=== PATIENT | male | born 1955 | race Two or more races ===

== ENCOUNTER 2018-09-02 14:45 | Emergency (ER) | payer MEDICAID ==
[~2018-09-02] VITALS: Ht 167.6 cm; Wt 72.6 kg
[2018-09-02] MEDS ORDERED: METFORMIN HCL500 M1 ORAL (14:57)
[2018-09-02] MEDS ORDERED: GABAPENTIN100 MG ORAL (14:57)
[2018-09-02] MEDS ORDERED: AMLODIPINE BESY10 MG ORAL (14:57)
[2018-09-02] MEDS ORDERED: LISINOPRIL5 MG ORAL (14:57)
[2018-09-02] MEDS ORDERED: ASPIR 8181 MG ORAL (14:57)
[2018-09-02] MEDS ORDERED: ATORVASTATIN CA20 MG ORAL (14:57)
[2018-09-02] MEDS ORDERED: Morphine Sulfate 4mg/ml Inj (IV USE ONLY) IVP ONE (15:00)
[2018-09-02] MEDS ORDERED: Isovue-300 100ml vial INJ PRN (15:00)
[2018-09-02 15:19] LABS: EOSINOPHILS % (AUTO) 1.3 % (0.0-3.0); HEMOGLOBIN 12.8 G/DL (14.2-18.0); MEAN CORPUSCULAR VOLUME 92 FL (80-99); MONOCYTES % (AUTO) 8.9 % (1.0-10.0); NEUTROPHILS % (AUTO) 70.7 % (45.0-75.0); PLATELET COUNT 270 K/UL (150-450); RED BLOOD COUNT 3.81 M/UL (4.70-6.10); RED CELL DISTRIBUTION WIDTH 10.5 % (11.6-14.8); WHITE BLOOD COUNT 9.3 K/UL (4.8-10.8)
--- NOTE | 2018-09-02 15:26 | Emergency Room Report ---
History of Present Illness General Chief Complaint: Abdominal Pain Source: Patient, EMS Present Illness HPI Patient presents with left hernia pain. Started yesterday. He has had a chronic hernia and has been evaluated at [facility]. There is scheduling a colonoscopy as opposed to scheduling surgery. He does not recall doing anything to cause the hernia to pop about this time. He denies vomiting or change in his bowel habits. The pain is 9 or 10/10 and constant but worse when he stands up. It improves when he lays down. There is some radiation into his abdomen. He denies dysuria. Occasionally he can reduce the hernia himself. He was unable to do so this time. No medications were taken. No fevers, chills, chest pain, palpitations, nausea, shortness of breath, depression, visual changes, headache. Allergies: Coded Allergies: No Known Allergies (Unverified , 09/02/18) Patient History Past Medical History: see triage record Social History Narrative From home Reviewed Nursing Documentation: PMH: Agreed; PSxH: Agreed Nursing Documentation-PMH Past Medical History: No History, Except For Hx Hypertension: Yes Hx Diabetes: Yes Hx Cancer: Yes - colon Review of Systems All Other Systems: negative except mentioned in HPI Physical Exam Vital Signs Date Time Temp Pulse Resp B/P (MAP) Pulse Ox O2 Delivery O2 Flow Rate FiO2 09/02/18 14:42 98.1 90 18 156/88 (110) 99 Room Air Sp02 EP Interpretation: reviewed, normal General Appearance: well appearing, no apparent distress, GCS 15 Head: normocephalic Eyes: bilateral eye normal inspection, bilateral eye PERRL ENT: moist mucus membranes Neck: supple Respiratory: lungs clear, normal breath sounds Cardiovascular #1: regular rate, rhythm Cardiovascular #2: 2+ radial (R) Gastrointestinal: normal inspection, normal bowel sounds, non tender, non- distended, tenderness - Scrotum, hernia - Left inguinal extending into scrotum Genitourinary: other - Hernia in left scrotum Musculoskeletal: back normal, normal range of motion Neurologic: alert, oriented x3, grossly normal Psychiatric: mood/affect normal Skin: no rash Procedures Additional Procedure Procedure Narrative Reduction of left inguinal hernia after morphine with direct pressure. Patient tolerated the procedure well. Medical Decision Making Diagnostic Impression: Primary Impression: Left inguinal hernia Additional Impression: Right ventral hernia ER Course The patient presents with a painful left inguinal hernia. Differential includes strangulation, hernia needing to be reduced, incarceration amongst others. Patient will be evaluated with chest x-ray abdominal film CT the abdomen and labs. The patient will be given dose of analgesia and we will attempt to reduce the hernia. The hernia was reduced after dose of morphine. The patient had decreased pain after that. EKG without injury. Chest x-ray poor inspiration. Abdominal films no obstruction. Labs with normal white count and CMP. Urinalysis negative. CT abdomen and pelvis with right ventral hernia. Mildly thickened bowel. (CT was performed after hernia was reduced.) Discussed findings with patient and the need to seek surgical repair of left inguinal hernia. Also suggested the use of a truss. Patient improved and stable for outpatient observation and treatment. Laboratory Tests Test 09/02/18 15:00 09/02/18 16:10 White Blood Count 9.3 K/UL (4.8-10.8) Red Blood Count 3.81 M/UL (4.70-6.10) L Hemoglobin 12.8 G/DL (14.2-18.0) L Hematocrit 35.0 % (42.0-52.0) L Mean Corpuscular Volume 92 FL (80-99) Mean Corpuscular Hemoglobin 33.5 PG (27.0-31.0) H Mean Corpuscular Hemoglobin Concent 36.5 G/DL (32.0-36.0) H Red Cell Distribution Width 10.5 % (11.6-14.8) L Platelet Count 270 K/UL (150-450) Mean Platelet Volume 4.7 FL (6.5-10.1) L Neutrophils (%) (Auto) 70.7 % (45.0-75.0) Lymphocytes (%) (Auto) 18.0 % (20.0-45.0) L Monocytes (%) (Auto) 8.9 % (1.0-10.0) Eosinophils (%) (Auto) 1.3 % (0.0-3.0) Basophils (%) (Auto) 1.0 % (0.0-2.0) Prothrombin Time 10.0 SEC (9.30-11.50) Prothrombin Time INR 0.9 (0.9-1.1) PTT 26 SEC (23-33) Sodium Level 139 MMOL/L (136-145) Potassium Level 4.3 MMOL/L (3.5-5.1) Chloride Level 100 MMOL/L (98-107) Carbon Dioxide Level 27 MMOL/L (21-32) Anion Gap 12 mmol/L (5-15) Blood Urea Nitrogen 36 mg/dL (7-18) H Creatinine 1.0 MG/DL (0.55-1.30) Estimate Glomerular Filtration Rate > 60 mL/min (>60) Glucose Level 150 MG/DL (74-106) H Calcium Level 9.5 MG/DL (8.5-10.1) Total Bilirubin 0.7 MG/DL (0.2-1.0) Aspartate Amino Transferase (AST) 15 U/L (15-37) Alanine Aminotransferase (ALT) 23 U/L (12-78) Alkaline Phosphatase 76 U/L (46-116) Total Creatine Kinase 54 U/L (26-308) Troponin I 0.000 ng/mL (0.000-0.056) Total Protein 7.3 G/DL (6.4-8.2) Albumin 4.3 G/DL (3.4-5.0) Globulin 3.0 g/dL Albumin/Globulin Ratio 1.4 (1.0-2.7) Lipase 206 U/L (73-393) Urine Color Pale yellow Urine Appearance Clear Urine pH 6 (4.5-8.0) Urine Specific Hood 1.015 (1.005-1.035) Urine Protein Negative (NEGATIVE) Urine Glucose (UA) Negative (NEGATIVE) Urine Ketones Negative (NEGATIVE) Urine Blood Negative (NEGATIVE) Urine Nitrite Negative (NEGATIVE) Urine Bilirubin Negative (NEGATIVE) Urine Urobilinogen Normal MG/DL (0.0-1.0) Urine Leukocyte Esterase Negative (NEGATIVE) EKG Diagnostic Results Rate: normal Rhythm: NSR ST Segments: no acute changes Rhythm Strip Diag. Results EP Interpretation: yes Rhythm: NSR, no PVC's, no ectopy Chest X-Ray Diagnostic Results Chest X-Ray Diagnostic Results : Chest X-Ray Ordered: Yes # of Views/Limited/Complete: 1 View EP Interpretation: Yes Interpretation: no consolidation, no effusion, no pneumothorax Impression: No acute disease Electronically Signed by: Electronically signed by Jacoby Arriola MD Other X-Ray Diagnostic Results Other X-Ray Diagnostic Results : X-Ray ordered: Abdomen # of Views/Limited Vs Complete: 1 View Indication: Pain EP Interpretation: Yes Interpretation: nonspecific bowel gas, no sbo, other - No masses Impression: Other Electronically Signed by: Electronically signed by Jacoby Arriola MD CT/MRI/US Diagnostic Results CT/MRI/US Diagnostic Results : Imaging Test Ordered: abd/pelvis Impression no strangulation. Ventral hernia right - see above Last Vital Signs Date Time Temp Pulse Resp B/P (MAP) Pulse Ox O2 Delivery O2 Flow Rate FiO2 09/02/18 19:00 98.0 44 18 134/56 99 Room Air Status: improved Disposition: HOME, SELF-CARE Condition: Improved Scripts Ibuprofen* (MOTRIN*) 600 Mg Tablet 600 MG ORAL Q6H PRN for For Pain, #20 TAB 0 Refills Prov: Jacoby Arriola MD 09/02/18 [Hernia truss] No Conflict Check NEEDED, #1 Prov: Jacoby Arriola MD 09/02/18 Jacoby Arriola MD Sep 02, 2018 15:26
[2018-09-02 15:29] LABS: INR 0.9 (0.9-1.1)
[2018-09-02 15:32] LABS: ANION GAP 12 mmol/L (5-15); BLOOD UREA NITROGEN 36 mg/dL (7-18); CALCIUM 9.5 MG/DL (8.5-10.1); CARBON DIOXIDE 27 MMOL/L (21-32); CHLORIDE 100 MMOL/L (98-107); POTASSIUM 4.3 MMOL/L (3.5-5.1); SODIUM 139 MMOL/L (136-145)
[2018-09-02 15:36] LABS: ALANINE AMINOTRANSFERASE 23 U/L (12-78); ALBUMIN 4.3 G/DL (3.4-5.0); ALBUMIN/GLOBULIN RATIO 1.4 (1.0-2.7); ALKALINE PHOSPHATASE 76 U/L (46-116); ASPARTATE AMINO TRANSFERASE 15 U/L (15-37); BILIRUBIN,TOTAL 0.7 MG/DL (0.2-1.0); CREATINE KINASE 54 U/L (26-308)
--- NOTE | 2018-09-02 15:45 | NUR ---
ED Nurse Note:pt. came with c/o left pelvic pain and hurnia, pt. is A/Ox4 ambulatory, blood sent to labs and pt. received pain meds and IV fluids
--- NOTE | 2018-09-02 15:45 | Diagnostic Imaging Report ---
Indication: Chest pain Comparison: None A single view chest radiograph was obtained. Findings: Cardiomediastinal appearance is within normal limits for age. The lungs are clear. Pulmonary vascularity is appropriate. The diaphragmatic contour is smooth and costophrenic angles are sharp. No pleural effusions are identified. The bones are unremarkable. Impression: No acute findings
[2018-09-02 16:11] VITALS: BP 126/73
--- NOTE | 2018-09-02 16:13 | NUR ---
ED Nurse Note:pt. taken oral contrast for CT scan prep
[2018-09-02 16:28] LABS: APPEARANCE,URINE CLEAR; BILIRUBIN, URINE NEGATIVE (NEGATIVE); COLOR,URINE PALE YELLOW; GLUCOSE, URINE (UA) NEGATIVE (NEGATIVE); KETONES,URINE NEGATIVE (NEGATIVE); LEUKOCYTE ESTERASE ,URINE NEGATIVE (NEGATIVE); NITRITE,URINE NEGATIVE (NEGATIVE); PH,URINE 6 (4.5-8.0); PROTEIN,URINE NEGATIVE (NEGATIVE); UROBILINOGEN,URINE NORMAL MG/DL (0.0-1.0)
--- NOTE | 2018-09-02 16:42 | NUR ---
ED Nurse Note:pt. had CT abdomen done
[2018-09-02 18:00] VITALS: BP 134/56
[2018-09-02] MEDS ORDERED: IBUPROFEN600 MG ORAL (18:36)
[2018-09-02] MEDS ORDERED: [UNRECOGNIZED DRUG - SUPPLY] (18:36)
[2018-09-02 19:00] VITALS: BP 134/56
--- NOTE | 2018-09-02 19:01 | NUR ---
ER DISCHARGE NOTE: Patient is cleared to be discharged per ERMD, pt is aox4, on room air, with stable vital signs. pt was given dc and prescription instructions, pt was able to verbalize understanding, pt id band and iv site removed without complications. pt is able to ambulate with steady gait. pt took all belongings, taxi voucher provided
--- NOTE | 2018-09-03 10:42 | Diagnostic Imaging Report ---
Indication: Abdominal pain Technique: Continuous helical transaxial imaging of the abdomen and pelvis was obtained from the lung bases to the pubic symphysis during intravenous contrast administration. Coronal 2-D reformats were also obtained. Study obtained in a Siemens sensation [address] Automatic Exposure Control was utilized. Total Dose length Product (DLP): 653.[address] Dose Index Volume (CTDIvol): 12.47 mGy Comparison: None Findings: There is a large hernia in the right lower quadrant anterior abdominal wall containing mesenteric fat and of the terminal ileum and colon. Correlate for incarceration. There is no apparent obstruction or other complications of due to this. There is a left lower quadrant colostomy present. There is a small parastomal hernia containing fat. There is a moderate amount of fecal retention within the colon. Aortoiliac calcifications are present. There are bilateral renal cysts. The gallbladder, liver and spleen, pancreas appear unremarkable. There is no adrenal mass. The lung bases are clear. Small hiatal hernia is noted. There is a left inguinal hernia containing fat. IMPRESSION: Large right lower quadrant spigelian hernia containing part of the colon and small bowel. No bowel obstruction secondary to this. Correlate clinically for incarceration. Partial colon resection. Left lower quadrant colostomy with parastomal hernia noted. Small left inguinal hernia containing fat. Hiatal hernia Multiple bilateral renal cysts. Moderate colonic retention of stool. Mild posterior basal atelectasis. Bilateral renal cysts. [facility] has communicated the preliminary results to the Emergency Department. Their findings are largely concordant with this report. The CT scanner at [facility] is accredited by the [employer] and the scans are performed using dose optimization techniques as appropriate to a performed exam including Automatic Exposure control.
--- NOTE | 2018-09-03 15:37 | Cardiology Report ---
APPROVED REPORT EKG Measurement Heart [id number] Normal sinus rhythm Nonspecific T wave abnormality Abnormal ECG
== END 2018-09-02 19:00 | disposition home or self-care (01) ==
LOC: EDBD 14:45 → EMR 17:33
DX: K44.9 Diaphragmatic hernia without obstruction or gangrene (principal); K43.9 Ventral hernia without obstruction or gangrene; I10 Essential (primary) hypertension; E11.9 Type 2 diabetes mellitus without complications; Z85.038 Personal history of other malignant neoplasm of large intestine
CPT/HCPCS: 36415; 71045; 74177; 80053; 81003; 82550; 83690; 84484; 85025; 85610; 85730; 86850; 86900; 86901; 93005; 96361; 96374; 96375; 99284; J2270; J2405; Q9967; Z7502

== ENCOUNTER 2018-09-11 13:53 | Inpatient (IN) | payer MEDICAID ==
[~2018-09-11] VITALS: Ht 172.7 cm; Wt 70.3 kg
[~2018-09-11 13:53] MED LIST: AMLODIPINE BESY10 MG ORAL; ASPIR 8181 MG ORAL; ATORVASTATIN CA20 MG ORAL; GABAPENTIN100 MG ORAL; IBUPROFEN600 MG ORAL; LISINOPRIL5 MG ORAL; METFORMIN HCL500 M1 ORAL; [UNRECOGNIZED DRUG - SUPPLY]
[2018-09-11 14:00] VITALS: BP 158/77
--- NOTE | 2018-09-11 14:00 | NUR ---
ED Nurse Note: pt brought by 68 from long-term due to abdominal pain for 1 hr. per pt, having pain on left side of groin area. swelling noted. no n/v/d. hx of hernia. colonostomy back noted on LLQ. hx of colon ca. AAO x4. respirations even and non-labored noted. breath sounds clear. bradycardia noted on lunchroom monitor. per Dr. Lehman's order, RN puts pt on trendelenburg position. ICE pack applied on swelling site. will give pain meds as order.
[2018-09-11] MEDS ORDERED: TRAMADOL HCL50 MG ORAL (14:06)
[2018-09-11] MEDS ORDERED: SERTRALINE HCL25 MG ORAL (14:06)
[2018-09-11] MEDS ORDERED: ACETAMINOPHEN500 M5 ORAL (14:06)
[2018-09-11] MEDS ORDERED: Isovue-300 100ml vial INJ PRN (14:15)
[2018-09-11] MEDS ORDERED: Morphine Sulfate 4mg/ml Inj (IV USE ONLY) IVP ONE ×2 (14:15→16:15)
[2018-09-11 14:24] LABS: BASOPHILS % (AUTO) 0.9 % (0.0-2.0); EOSINOPHILS % (AUTO) 1.2 % (0.0-3.0); HEMATOCRIT 36.8 % (42.0-52.0); HEMOGLOBIN 12.9 G/DL (14.2-18.0); LYMPHOCYTES % (AUTO) 20.6 % (20.0-45.0); MEAN CORPUSCULAR VOLUME 94 FL (80-99); MONOCYTES % (AUTO) 9.5 % (1.0-10.0); NEUTROPHILS % (AUTO) 67.7 % (45.0-75.0); PLATELET COUNT 286 K/UL (150-450); RED BLOOD COUNT 3.93 M/UL (4.70-6.10); WHITE BLOOD COUNT 7.9 K/UL (4.8-10.8)
--- NOTE | 2018-09-11 14:27 | Emergency Room Report ---
History of Present Illness General Chief Complaint: Abdominal Pain Source: Patient, Medical Record Present Illness HPI This patient has a history of colon cancer. He has a colostomy bag. Is a history of a left inguinal hernia. He states that about an hour ago the hernia became painful. He states that it had previously moved in and out. He states the pain is severe and he cannot tolerate it. He denies recent illness. He denies fever or chills. He denies nausea or vomiting. He denies chest pain or shortness of breath. He has no other complaints. Allergies: Coded Allergies: No Known Allergies (Unverified , 09/02/18) Patient History Past Medical History: see triage record, DM, HTN, other Past Surgical History: other - colostomy Social History: Denies: smoking, alcohol use, drug use Reviewed Nursing Documentation: PMH: Agreed; PSxH: Agreed Nursing Documentation-PMH Past Medical History: No History, Except For Hx Hypertension: Yes Hx Diabetes: Yes Hx Cancer: Yes - Colon, colostomy bag Review of Systems All Other Systems: negative except mentioned in HPI Physical Exam Vital Signs Date Time Temp Pulse Resp B/P (MAP) Pulse Ox O2 Delivery O2 Flow Rate FiO2 09/11/18 13:53 97.5 77 16 132/87 (102) 98 Room Air Sp02 EP Interpretation: reviewed, normal General Appearance: no apparent distress, alert, GCS 15, non-toxic Head: normocephalic, atraumatic Eyes: bilateral eye normal inspection, bilateral eye PERRL ENT: hearing grossly normal, normal pharynx, no angioedema, normal voice Neck: full range of motion, supple/symm/no masses Respiratory: chest non-tender, lungs clear, normal breath sounds, no respiratory distress, no retraction, no accessory muscle use, speaking full sentences Cardiovascular #1: regular rate, rhythm, no edema Gastrointestinal: soft, no guarding, no rebound, hernia - Incarcerated hernia in the L. inguinal canal to include L. scrotum palpation c/w bowel Rectal: deferred Musculoskeletal: back normal, gait/station normal, normal range of motion, non- tender Neurologic: alert, oriented x3, responsive, motor strength/tone normal, sensory intact, speech normal Psychiatric: judgement/insight normal, memory normal, mood/affect normal, no suicidal/homicidal ideation Medical Decision Making Diagnostic Impression: Primary Impression: Incarcerated left inguinal hernia ER Course This patient has an incarcerated left inguinal hernia. Is exquisitely tender to palpation and I was un-able to reduce it in the emergency department. Patient was given pain control, ice packs were placed on the hernia the patient was placed in Trendelenburg. The patient is admitted for surgical intervention of an incarcerated inguinal hernia. Laboratory Tests Test 09/11/18 14:00 09/11/18 14:22 White Blood Count 7.9 K/UL (4.8-10.8) Red Blood Count 3.93 M/UL (4.70-6.10) L Hemoglobin 12.9 G/DL (14.2-18.0) L Hematocrit 36.8 % (42.0-52.0) L Mean Corpuscular Volume 94 FL (80-99) Mean Corpuscular Hemoglobin 32.8 PG (27.0-31.0) H Mean Corpuscular Hemoglobin Concent 35.0 G/DL (32.0-36.0) Red Cell Distribution Width 11.0 % (11.6-14.8) L Platelet Count 286 K/UL (150-450) Mean Platelet Volume 4.7 FL (6.5-10.1) L Neutrophils (%) (Auto) 67.7 % (45.0-75.0) Lymphocytes (%) (Auto) 20.6 % (20.0-45.0) Monocytes (%) (Auto) 9.5 % (1.0-10.0) Eosinophils (%) (Auto) 1.2 % (0.0-3.0) Basophils (%) (Auto) 0.9 % (0.0-2.0) Prothrombin Time 9.9 SEC (9.30-11.50) Prothrombin Time INR 0.9 (0.9-1.1) PTT 26 SEC (23-33) Sodium Level 137 MMOL/L (136-145) Potassium Level 4.7 MMOL/L (3.5-5.1) Chloride Level 102 MMOL/L (98-107) Carbon Dioxide Level 23 MMOL/L (21-32) Anion Gap 12 mmol/L (5-15) Blood Urea Nitrogen 31 mg/dL (7-18) H Creatinine 1.1 MG/DL (0.55-1.30) Estimate Glomerular Filtration Rate > 60 mL/min (>60) Glucose Level 101 MG/DL (74-106) Calcium Level 9.2 MG/DL (8.5-10.1) Total Bilirubin 0.6 MG/DL (0.2-1.0) Aspartate Amino Transferase (AST) 15 U/L (15-37) Alanine Aminotransferase (ALT) 15 U/L (12-78) Alkaline Phosphatase 69 U/L (46-116) Total Protein 7.3 G/DL (6.4-8.2) Albumin 4.0 G/DL (3.4-5.0) Globulin 3.3 g/dL Albumin/Globulin Ratio 1.2 (1.0-2.7) Lipase 304 U/L (73-393) Lactic Acid Level Pending CT/MRI/US Diagnostic Results CT/MRI/US Diagnostic Results : Imaging Test Ordered: CT abd/pelvis Impression New, large left inguinal hernia containing part of the sigmoid colon and small bowel. Some inflammation is present. Incarceration is suspected. Partial bowel obstruction is not excluded. Please evaluate clinically. Recommend surgical consultation. No change in this regard to a large right lower quadrant spigelian hernia. Left lower quadrant sigmoid colostomy. Bilateral renal cysts. Other incidental findings as above Last Vital Signs Date Time Temp Pulse Resp B/P (MAP) Pulse Ox O2 Delivery O2 Flow Rate FiO2 09/11/18 13:53 97.5 77 16 132/87 (102) 98 Room Air Disposition: ADMITTED INPATIENT Condition: Serious Vane Lehman DO Sep 11, 2018 14:27
[2018-09-11 14:41] LABS: INR 0.9 (0.9-1.1)
[2018-09-11 14:42] LABS: ANION GAP 12 mmol/L (5-15); BLOOD UREA NITROGEN 31 mg/dL (7-18); CALCIUM 9.2 MG/DL (8.5-10.1); CARBON DIOXIDE 23 MMOL/L (21-32); CHLORIDE 102 MMOL/L (98-107); CREATININE 1.1 MG/DL (0.55-1.30); POTASSIUM 4.7 MMOL/L (3.5-5.1); SODIUM 137 MMOL/L (136-145)
[2018-09-11 14:47] LABS: ALANINE AMINOTRANSFERASE 15 U/L (12-78); ALBUMIN/GLOBULIN RATIO 1.2 (1.0-2.7); ALKALINE PHOSPHATASE 69 U/L (46-116); ASPARTATE AMINO TRANSFERASE 15 U/L (15-37); BILIRUBIN,TOTAL 0.6 MG/DL (0.2-1.0)
[2018-09-11 15:00] VITALS: BP 148/68
--- NOTE | 2018-09-11 15:45 | NUR ---
ED Nurse Note: CT and urine pending.
[2018-09-11] MEDS ORDERED: LORazepam Inj 2mg/ml 1ml IV PRN (16:00)
[2018-09-11] MEDS ORDERED: Morphine Sulfate 2mg/ml Inj(IV/IM USE ONLY) IVP PRN (16:00)
--- NOTE | 2018-09-11 16:00 | NUR ---
ED Nurse Note: RN confirmed with Dr. Lehman that pt can go [facility] without CT result and urine sample collection.
--- NOTE | 2018-09-11 16:23 | Diagnostic Imaging Report ---
Indication: Abdominal pain Technique: Continuous helical transaxial imaging of the abdomen and pelvis was obtained from the lung bases to the pubic symphysis during intravenous contrast administration. Coronal 2-D reformats were also obtained. Study obtained in a Siemens sensation [address] Automatic Exposure Control was utilized. Total Dose length Product (DLP): 904.[address] Dose Index Volume (CTDIvol): 12.03,11.29 mGy Comparison: CT abdomen pelvis September 02, 2018 Findings: Mild posterior basal atelectasis demonstrated with patchy groundglass opacification at the lung bases. Hiatal hernia noted. The liver is unremarkable. Spleen is unremarkable. There are bilateral renal cysts. Arterial calcification noted. There is a sigmoid colostomy in the left lower quadrant of the abdomen. There is a prominent right lower quadrant spigelian abdominal wall hernia again noted containing large and small bowel. Normal appendix is noted. Partial resection of the colon noted. There is a new left inguinal hernia containing part of the sigmoid colon and small bowel. A small left inguinal hernia was seen on the previous study on 09/02/2018 but not to this extent. There is some evidence of incarceration of the left inguinal hernia given increased density of the fat that is within the hernia sac. In addition there is mild distention of small bowel proximal to the hernia suggesting there may be some impediment or partial obstruction. Please correlate clinically. Urinary bladder is unremarkable. Diverticula are noted within the colon. Degenerative changes of the lumbar spine are noted with mild hypertrophy of the lumbar facets, vacuum disc phenomena at L5-S1 and mild endplate osteophytes. There is no free fluid identified. The pancreas, adrenal glands and gallbladder appear unremarkable. Aortoiliac calcifications are present. IMPRESSION: New, large left inguinal hernia containing part of the sigmoid colon and small bowel. Some inflammation is present. Incarceration is suspected. Partial bowel obstruction is not excluded. Please evaluate clinically. Recommend surgical consultation. No change in this regard to a large right lower quadrant spigelian hernia. Left lower quadrant sigmoid colostomy. Bilateral renal cysts. Other incidental findings as above The CT scanner at [facility] is accredited by the [employer] and the scans are performed using dose optimization techniques as appropriate to a performed exam including Automatic Exposure control.
--- NOTE | 2018-09-11 16:23 | NUR ---
ED Nurse Note: Reports given to AIME Gillespie
--- NOTE | 2018-09-11 16:58 | NUR ---
NURSE NOTES: Patient transferred from ED on [facility]. Patient is stable and on room air. Patient is alert and orientedx4. Report received from Chuy Cortés RN. Patient has belongings at bedside. Belongings verified with ER transfer personnel. IV site on the left forearm 18G, dressing is clean, dry and intact. Patient is resting, bed is locked, alarmed and in the lowest position. Yellow socks placed on patient.
[2018-09-11 17:00] VITALS: BP 172/97
[2018-09-11] MEDS: NovoLOG Insulin Flexpen SUBQ SCH ×2 (17:00→21:19)
--- NOTE | 2018-09-11 18:17 | NUR ---
NURSE NOTES: Patients blood pressure running high, notified. followed MD orders for BP medication PRN for systolic above 160.
--- NOTE | 2018-09-11 19:36 | NUR ---
HAND-OFF: Report given to Report given to Preston RN's..
[2018-09-11 19:38] VITALS: BP 159/74
--- NOTE | 2018-09-11 19:45 | NUR ---
NURSE NOTES: Received report from Zev RN. Patient alert, awake, and verbally responsive to let needs known. Patient breathing unlabored and evenly without signs of distress, discomfort, and SOB noted at this time. No pain noted at this time. IV site on the LFA noted intact, dry, and clean. Patient's bed is at the lowest position with brakes on and side rails up x 2 for safety measures and to assist bed mobility. Call light placed within reach. Will continue to monitor and provide care as ordered.
[2018-09-11 20:00] VITALS: BP 146/81
[2018-09-11] MEDS ORDERED: Zolpidem 5mg tab ORAL PRN (21:00)
[2018-09-11] MEDS ORDERED: Miralax 17gm pkt ORAL PRN (21:00)
[2018-09-11] MEDS: Heparin 5000 units/ml inj SUBQ SCH (21:19)
[2018-09-12] VITALS: BP 129/71
[2018-09-12 04:00] VITALS: BP 150/83
[2018-09-12] MEDS: NovoLOG Insulin Flexpen SUBQ SCH ×3 (05:56→17:13)
[2018-09-12 06:49] LABS: BASOPHILS % (AUTO) 0.9 % (0.0-2.0); EOSINOPHILS % (AUTO) 1.1 % (0.0-3.0); HEMATOCRIT 33.6 % (42.0-52.0); HEMOGLOBIN 11.9 G/DL (14.2-18.0); LYMPHOCYTES % (AUTO) 20.2 % (20.0-45.0); MEAN CORPUSCULAR VOLUME 94 FL (80-99); MONOCYTES % (AUTO) 8.5 % (1.0-10.0); NEUTROPHILS % (AUTO) 69.3 % (45.0-75.0); PLATELET COUNT 248 K/UL (150-450); RED BLOOD COUNT 3.56 M/UL (4.70-6.10); RED CELL DISTRIBUTION WIDTH 11.2 % (11.6-14.8); WHITE BLOOD COUNT 7.4 K/UL (4.8-10.8)
[2018-09-12 07:07] LABS: ALANINE AMINOTRANSFERASE 11 U/L (12-78); ALBUMIN 3.4 G/DL (3.4-5.0); ALBUMIN/GLOBULIN RATIO 1.1 (1.0-2.7); ALKALINE PHOSPHATASE 60 U/L (46-116); ANION GAP 9 mmol/L (5-15); ASPARTATE AMINO TRANSFERASE 17 U/L (15-37); BILIRUBIN,TOTAL 0.8 MG/DL (0.2-1.0); BLOOD UREA NITROGEN 22 mg/dL (7-18); CALCIUM 8.6 MG/DL (8.5-10.1); CARBON DIOXIDE 24 MMOL/L (21-32); CHLORIDE 106 MMOL/L (98-107); CHOLESTEROL 132 MG/DL (< 200); CREATININE 0.9 MG/DL (0.55-1.30); HDL CHOLESTEROL 47 MG/DL (40-60); POTASSIUM 4.2 MMOL/L (3.5-5.1); SODIUM 139 MMOL/L (136-145); TRIGLYCERIDES 91 MG/DL (30-150)
--- NOTE | 2018-09-12 07:12 | NUR ---
HAND-OFF: Report given to AIME Gillespie. Patient in stable condition.
--- NOTE | 2018-09-12 07:34 | NUR ---
NURSE NOTES: Handoff received from Demetrius and Judson, RN's, Patient received stable and resting in bed.
[2018-09-12 08:00] VITALS: BP 137/65
[2018-09-12] MEDS ORDERED: Sertraline 50mg tab ORAL SCH (09:00)
[2018-09-12] MEDS: Heparin 5000 units/ml inj SUBQ SCH (09:50)
--- NOTE | 2018-09-12 10:45 | NUR ---
Social Service Note SW met with patient with primary nurse to assess for dc planning. Patient Swedish is limited and nurse provided translation. Patient is alert, oriented and verbally responsive. Patient resides at the [facility] Located at [address] [place] [address]. SW spoke with Vandana [phone] or [phone]. Per Vandana patient may return at any time. Discharge instructions to be provided to patient along with H&P and mediation list. Patient states he has a PCP appointment scheduled on October 15. Patient is unable to recall clinic location but states the information is in room at his program. Patient is in agreement to return to program upon discharge. Patient will require transportation. Patient's emergency contact Yolis Benjamin dgt [phone] and Geovany Benjamin brother [phone]. Patient with a history of ETOH abuse and depression.
[2018-09-12 12:00] VITALS: BP 135/80
--- NOTE | 2018-09-12 13:07 | Consultation ---
History of Present Illness General Date patient seen: Sep 12, 2018 Chief Complaint: Abdominal Pain Present Illness HPI 63 year old homeless man with hx of DM, HTN, colon cancer, s/p colostomy, left inguinal hernia presented to ER with CC of pain around the hernia. He states that it had previously moved in and out. But now the pain is severe and he cannot tolerate it. He is admitted for surgical evaluation. Allergies: Coded Allergies: No Known Allergies (Unverified , 09/02/18) Medication History Scheduled Amlodipine Besylate* (Amlodipine Besylate*), 10 MG ORAL DAILY, (Reported) Aspirin* (Aspir 81*), 81 MG ORAL DAILY, (Reported) Atorvastatin Calcium* (Atorvastatin Calcium*), 20 MG ORAL BEDTIME, (Reported) Gabapentin* (Gabapentin*), 100 MG ORAL DAILY, (Reported) Lisinopril (Lisinopril*), 10 MG ORAL DAILY, (Reported) Metformin Hcl* (Metformin Hcl*), 500 MG ORAL TWICE A DAY, (Reported) Sertraline Hcl* (Sertraline Hcl*), 50 MG ORAL DAILY, (Reported) Scheduled PRN Acetaminophen (Acetaminophen), 500 MG ORAL Q4H PRN for For Pain, (Reported) Ibuprofen* (Motrin*), 600 MG ORAL Q6H PRN for For Pain Tramadol Hcl* (Ultram*), 50 MG ORAL Q6H PRN for For Pain, (Reported) Durable Medical Equipment [Hernia truss], NEEDED, (DME) Patient History Healthcare decision maker N Resuscitation status Full Code Advanced Directive on File Past Medical/Surgical History Past Medical/Surgical History: (1) Diabetes mellitus (2) History of colon cancer (3) Colostomy care Review of Systems All Other Systems: negative except mentioned in HPI Physical Exam General Appearance: thin Lines, tubes and drains: peripheral, other - colostomy HEENT: normocephalic, atraumatic Neck: non-tender, normal alignment Respiratory/Chest: chest wall non-tender, lungs clear, normal breath sounds Cardiovascular/Chest: normal peripheral pulses, normal rate Abdomen: normal bowel sounds, non tender Genitourinary/Rectal: normal genital exam Extremities: normal range of motion Last 24 Hour Vital Signs Date Time Temp Pulse Resp B/P (MAP) Pulse Ox O2 Delivery O2 Flow Rate FiO2 09/12/18 12:00 98.6 59 19 135/80 (98) 98 09/12/18 09:46 57 137/65 09/12/18 09:00 Room Air 09/12/18 08:00 98.6 57 18 137/65 (89) 98 09/12/18 04:00 98.2 51 20 150/83 (105) 97 09/12/18 00:00 98.6 60 20 129/71 (90) 97 09/11/18 21:00 Room Air 09/11/18 20:00 98.3 75 20 146/81 (102) 95 09/11/18 19:38 159/74 (102) 09/11/18 17:35 Room Air 09/11/18 17:00 97.5 58 18 172/97 (122) 97 09/11/18 16:29 98.1 60 21 152/65 100 Room Air 09/11/18 15:00 61 24 148/68 100 Room Air 09/11/18 14:00 98.0 48 27 158/77 99 Room Air 09/11/18 14:00 48 27 Room Air 09/11/18 13:53 97.5 77 16 132/87 (102) 98 Room Air Intake and Output 09/11/18 09/12/18 19:00 07:00 Intake Total 2250 ml Balance 2250 ml Intake Oral 250 ml IV Total 2000 ml # Voids 1 4 # Bowel Movements 1 Laboratory Tests Test 09/11/18 14:00 09/11/18 14:22 09/12/18 06:18 White Blood Count 7.9 K/UL (4.8-10.8) 7.4 K/UL (4.8-10.8) Red Blood Count 3.93 M/UL (4.70-6.10) L 3.56 M/UL (4.70-6.10) L Hemoglobin 12.9 G/DL (14.2-18.0) L 11.9 G/DL (14.2-18.0) L Hematocrit 36.8 % (42.0-52.0) L 33.6 % (42.0-52.0) L Mean Corpuscular Volume 94 FL (80-99) 94 FL (80-99) Mean Corpuscular Hemoglobin 32.8 PG (27.0-31.0) H 33.4 PG (27.0-31.0) H Mean Corpuscular Hemoglobin Concent 35.0 G/DL (32.0-36.0) 35.4 G/DL (32.0-36.0) Red Cell Distribution Width 11.0 % (11.6-14.8) L 11.2 % (11.6-14.8) L Platelet Count 286 K/UL (150-450) 248 K/UL (150-450) Mean Platelet Volume 4.7 FL (6.5-10.1) L 4.7 FL (6.5-10.1) L Neutrophils (%) (Auto) 67.7 % (45.0-75.0) 69.3 % (45.0-75.0) Lymphocytes (%) (Auto) 20.6 % (20.0-45.0) 20.2 % (20.0-45.0) Monocytes (%) (Auto) 9.5 % (1.0-10.0) 8.5 % (1.0-10.0) Eosinophils (%) (Auto) 1.2 % (0.0-3.0) 1.1 % (0.0-3.0) Basophils (%) (Auto) 0.9 % (0.0-2.0) 0.9 % (0.0-2.0) Prothrombin Time 9.9 SEC (9.30-11.50) Prothromb Time International Ratio 0.9 (0.9-1.1) Activated Partial Thromboplast Time 26 SEC (23-33) Sodium Level 137 MMOL/L (136-145) 139 MMOL/L (136-145) Potassium Level 4.7 MMOL/L (3.5-5.1) 4.2 MMOL/L (3.5-5.1) Chloride Level 102 MMOL/L (98-107) 106 MMOL/L (98-107) Carbon Dioxide Level 23 MMOL/L (21-32) 24 MMOL/L (21-32) Anion Gap 12 mmol/L (5-15) 9 mmol/L (5-15) Blood Urea Nitrogen 31 mg/dL (7-18) H 22 mg/dL (7-18) H Creatinine 1.1 MG/DL (0.55-1.30) 0.9 MG/DL (0.55-1.30) Estimat Glomerular Filtration Rate > 60 mL/min (>60) > 60 mL/min (>60) Glucose Level 101 MG/DL (74-106) 90 MG/DL (74-106) Calcium Level 9.2 MG/DL (8.5-10.1) 8.6 MG/DL (8.5-10.1) Total Bilirubin 0.6 MG/DL (0.2-1.0) 0.8 MG/DL (0.2-1.0) Aspartate Amino Transf (AST/SGOT) 15 U/L (15-37) 17 U/L (15-37) Alanine Aminotransferase (ALT/SGPT) 15 U/L (12-78) 11 U/L (12-78) L Alkaline Phosphatase 69 U/L (46-116) 60 U/L (46-116) Total Protein 7.3 G/DL (6.4-8.2) 6.6 G/DL (6.4-8.2) Albumin 4.0 G/DL (3.4-5.0) 3.4 G/DL (3.4-5.0) Globulin 3.3 g/dL 3.2 g/dL Albumin/Globulin Ratio 1.2 (1.0-2.7) 1.1 (1.0-2.7) Lipase 304 U/L (73-393) Lactic Acid Level 1.70 mmol/L (0.4-2.0) Triglycerides Level 91 MG/DL (30-150) Cholesterol Level 132 MG/DL (< 200) LDL Cholesterol 67 mg/dL (<100) HDL Cholesterol 47 MG/DL (40-60) Cholesterol/HDL Ratio 2.8 (3.3-4.4) L Height (Feet): 5 Height (Inches): 8.00 Weight (Pounds): 155 Medications Current Medications Medications (Trade) Dose Ordered Sig/Alden Route PRN Reason Start Time Stop Time Status Last Admin Dose Admin Acetaminophen (Tylenol) 650 mg Q4H PRN ORAL T>100.5 09/11/18 16:00 10/11/18 15:59 Amlodipine Besylate (Norvasc) 10 mg DAILY ORAL 09/12/18 09:00 10/12/18 08:59 09/12/18 09:46 Barium Sulfate (Readi-Cat 2) 450 ml NOW PRN ORAL Radiology Procedure 09/11/18 14:15 09/13/18 14:06 Clonidine HCl (Catapres Tab) 0.1 mg Q6H PRN ORAL SBP > 160mmHg 09/11/18 18:15 10/11/18 18:14 Dextrose (Dextrose 50%) 25 ml Q30M PRN IV Hypoglycemia 09/11/18 16:00 10/11/18 15:59 Dextrose (Dextrose 50%) 50 ml Q30M PRN IV Hypoglycemia 09/11/18 16:00 10/11/18 15:59 Gabapentin (Neurontin) 100 mg DAILY ORAL 09/12/18 09:00 10/12/18 08:59 09/12/18 09:47 Heparin Sodium (Porcine) (Heparin 5000 units/ml) 5,000 units EVERY 12 HOURS SUBQ 09/11/18 21:00 10/11/18 20:59 09/12/18 09:50 Insulin Aspart (NovoLOG) BEFORE MEALS AND HS SUBQ 09/11/18 17:00 10/11/18 16:59 09/11/18 21:19 Iopamidol (Isovue-300 100ml) 100 ml NOW PRN INJ Radiology Procedure 09/11/18 14:15 Lorazepam (Ativan 2mg/ml 1ml) 0.5 mg Q4H PRN IV For Anxiety 09/11/18 16:00 09/18/18 15:59 Morphine Sulfate (Morphine Sulfate) 1 mg Q4H PRN IVP PAIN 4-10 09/11/18 16:00 09/18/18 15:59 Ondansetron HCl (Zofran) 4 mg Q6H PRN IVP Nausea & Vomiting 09/11/18 16:00 10/11/18 15:59 Polyethylene Glycol (Miralax) 17 gm HSPRN PRN ORAL Constipation 09/11/18 21:00 10/11/18 20:59 Sertraline HCl (Zoloft) 50 mg DAILY ORAL 09/12/18 09:00 10/12/18 08:59 09/12/18 09:46 Zolpidem Tartrate (Ambien) 5 mg HSPRN PRN ORAL Insomnia 09/11/18 21:00 09/18/18 20:59 Assessment/Plan Problem List: (1) Incarcerated left inguinal hernia ICD Codes: K40.30 - Unilateral inguinal hernia, with obstruction, without gangrene, not specified as recurrent SNOMED: 673158894 (2) Diabetes mellitus ICD Codes: E11.9 - Type 2 diabetes mellitus without complications SNOMED: 21415176 (3) History of colon cancer ICD Codes: Z85.038 - Personal history of other malignant neoplasm of large intestine SNOMED: 481151587 (4) Colostomy care ICD Codes: Z43.3 - Encounter for attention to colostomy SNOMED: 976614954 Assessment/Plan: surgical evaluatin sliding scale diabetic diet colostomy site care tumor markers Axel Bautista MD Sep 12, 2018 13:07
--- NOTE | 2018-09-12 14:18 | Consultation ---
History of Present Illness General Date patient seen: Sep 12, 2018 Reason for Hospitalization: Abdominal Pain Present Illness HPI 63 year old male with history of colon ca s/p colostomy and known inguinal hernia presented with left inguinal pain. CT noted left hernia with bowel contents. surgery called to evaluate. patient seen, chart reviewed, patient examined. no n/v/f/c. gas in bag and stool. states hernia reduced since admission Allergies: Coded Allergies: No Known Allergies (Unverified , 09/02/18) Medication History Scheduled Amlodipine Besylate* (Amlodipine Besylate*), 10 MG ORAL DAILY, (Reported) Aspirin* (Aspir 81*), 81 MG ORAL DAILY, (Reported) Atorvastatin Calcium* (Atorvastatin Calcium*), 20 MG ORAL BEDTIME, (Reported) Gabapentin* (Gabapentin*), 100 MG ORAL DAILY, (Reported) Lisinopril (Lisinopril*), 10 MG ORAL DAILY, (Reported) Metformin Hcl* (Metformin Hcl*), 500 MG ORAL TWICE A DAY, (Reported) Sertraline Hcl* (Sertraline Hcl*), 50 MG ORAL DAILY, (Reported) Scheduled PRN Acetaminophen (Acetaminophen), 500 MG ORAL Q4H PRN for For Pain, (Reported) Ibuprofen* (Motrin*), 600 MG ORAL Q6H PRN for For Pain Tramadol Hcl* (Ultram*), 50 MG ORAL Q6H PRN for For Pain, (Reported) Durable Medical Equipment [Hernia truss], NEEDED, (DME) Patient History History Provided By: Patient, Medical Record, PMD Healthcare decision maker N Resuscitation status Full Code Advanced Directive on File Past Medical/Surgical History Past Medical/Surgical History: (1) Left inguinal hernia (2) Diabetes mellitus (3) History of colon cancer (4) Colostomy care (5) Incarcerated left inguinal hernia Review of Systems Review of Symptoms General ROS: no weight loss or fever Psychological ROS: no depression or mood changes, no memory loss Ophthalmic ROS: no visual changes or eye irritation ENT ROS: no nasal congestion, hearing loss, dizziness Allergy and Immunology ROS: no allergic symptoms or urticaria Hematological and Lymphatic ROS: no swollen glands, unusual bleeding or bruising Endocrine ROS: no polyuria, polydipsia, weight changes, temperature intolerance Respiratory ROS: no cough, shortness of breath, or wheezing Cardiovascular ROS: no chest pain or dyspnea on exertion Gastrointestinal ROS: denies abdominal pain, no bright red blood in stool. Musculoskeletal ROS: no myalgias or arthralgias Neurological ROS: no TIA or stroke symptoms Dermatological ROS: no new or changing skin lesions, rashes or pruritis Physical Exam Physical Exam General appearance: alert, cooperative, no distress, appears stated age Head: Normocephalic, without obvious abnormality, atraumatic Eyes: conjunctivae/corneas clear. PERRL, EOM's intact. Fundi benign Throat: Lips, mucosa, and tongue normal. Teeth and gums normal Neck: supple, symmetrical, trachea midline, no adenopathy, thyroid: not enlarged, symmetric, no tenderness/mass/nodules, no carotid bruit and no JVD Lungs: clear to auscultation bilaterally Heart: regular rate and rhythm, S1, S2 normal, no murmur, click, rub or gallop Abdomen: soft, non-tender. Bowel sounds normal. No masses, no organomegaly left colostomy, prior midline incision healed. right incisional hernia reducible, left inguinal hernia reducible Extremities: extremities normal, atraumatic, no cyanosis or edema Pulses: 2+ and symmetric Skin: Skin color, texture, turgor normal. No rashes or lesions Neurologic: Grossly normal Last 24 Hour Vital Signs Date Time Temp Pulse Resp B/P (MAP) Pulse Ox O2 Delivery O2 Flow Rate FiO2 09/12/18 12:00 98.6 59 19 135/80 (98) 98 09/12/18 09:46 57 137/65 09/12/18 09:00 Room Air 09/12/18 08:00 98.6 57 18 137/65 (89) 98 09/12/18 04:00 98.2 51 20 150/83 (105) 97 09/12/18 00:00 98.6 60 20 129/71 (90) 97 09/11/18 21:00 Room Air 09/11/18 20:00 98.3 75 20 146/81 (102) 95 09/11/18 19:38 159/74 (102) 09/11/18 17:35 Room Air 09/11/18 17:00 97.5 58 18 172/97 (122) 97 09/11/18 16:29 98.1 60 21 152/65 100 Room Air 09/11/18 15:00 61 24 148/68 100 Room Air Intake and Output 09/11/18 09/12/18 19:00 07:00 Intake Total 2250 ml Balance 2250 ml Intake Oral 250 ml IV Total 2000 ml # Voids 1 4 # Bowel Movements 1 Laboratory Tests Test 09/11/18 14:22 09/12/18 06:18 Lactic Acid Level 1.70 mmol/L (0.4-2.0) White Blood Count 7.4 K/UL (4.8-10.8) Red Blood Count 3.56 M/UL (4.70-6.10) L Hemoglobin 11.9 G/DL (14.2-18.0) L Hematocrit 33.6 % (42.0-52.0) L Mean Corpuscular Volume 94 FL (80-99) Mean Corpuscular Hemoglobin 33.4 PG (27.0-31.0) H Mean Corpuscular Hemoglobin Concent 35.4 G/DL (32.0-36.0) Red Cell Distribution Width 11.2 % (11.6-14.8) L Platelet Count 248 K/UL (150-450) Mean Platelet Volume 4.7 FL (6.5-10.1) L Neutrophils (%) (Auto) 69.3 % (45.0-75.0) Lymphocytes (%) (Auto) 20.2 % (20.0-45.0) Monocytes (%) (Auto) 8.5 % (1.0-10.0) Eosinophils (%) (Auto) 1.1 % (0.0-3.0) Basophils (%) (Auto) 0.9 % (0.0-2.0) Sodium Level 139 MMOL/L (136-145) Potassium Level 4.2 MMOL/L (3.5-5.1) Chloride Level 106 MMOL/L (98-107) Carbon Dioxide Level 24 MMOL/L (21-32) Anion Gap 9 mmol/L (5-15) Blood Urea Nitrogen 22 mg/dL (7-18) H Creatinine 0.9 MG/DL (0.55-1.30) Estimat Glomerular Filtration Rate > 60 mL/min (>60) Glucose Level 90 MG/DL (74-106) Calcium Level 8.6 MG/DL (8.5-10.1) Total Bilirubin 0.8 MG/DL (0.2-1.0) Aspartate Amino Transf (AST/SGOT) 17 U/L (15-37) Alanine Aminotransferase (ALT/SGPT) 11 U/L (12-78) L Alkaline Phosphatase 60 U/L (46-116) Total Protein 6.6 G/DL (6.4-8.2) Albumin 3.4 G/DL (3.4-5.0) Globulin 3.2 g/dL Albumin/Globulin Ratio 1.1 (1.0-2.7) Triglycerides Level 91 MG/DL (30-150) Cholesterol Level 132 MG/DL (< 200) LDL Cholesterol 67 mg/dL (<100) HDL Cholesterol 47 MG/DL (40-60) Cholesterol/HDL Ratio 2.8 (3.3-4.4) L Carcinoembryonic Antigen Pending Height (Feet): 5 Height (Inches): 8.00 Weight (Pounds): 155 Medications Current Medications Medications (Trade) Dose Ordered Sig/Alden Route PRN Reason Start Time Stop Time Status Last Admin Dose Admin Acetaminophen (Tylenol) 650 mg Q4H PRN ORAL T>100.5 09/11/18 16:00 10/11/18 15:59 Amlodipine Besylate (Norvasc) 10 mg DAILY ORAL 09/12/18 09:00 10/12/18 08:59 09/12/18 09:46 Barium Sulfate (Readi-Cat 2) 450 ml NOW PRN ORAL Radiology Procedure 09/11/18 14:15 09/13/18 14:06 Clonidine HCl (Catapres Tab) 0.1 mg Q6H PRN ORAL SBP > 160mmHg 09/11/18 18:15 10/11/18 18:14 Dextrose (Dextrose 50%) 25 ml Q30M PRN IV Hypoglycemia 09/11/18 16:00 10/11/18 15:59 Dextrose (Dextrose 50%) 50 ml Q30M PRN IV Hypoglycemia 09/11/18 16:00 10/11/18 15:59 Gabapentin (Neurontin) 100 mg DAILY ORAL 09/12/18 09:00 10/12/18 08:59 09/12/18 09:47 Heparin Sodium (Porcine) (Heparin 5000 units/ml) 5,000 units EVERY 12 HOURS SUBQ 09/11/18 21:00 10/11/18 20:59 09/12/18 09:50 Insulin Aspart (NovoLOG) BEFORE MEALS AND HS SUBQ 09/11/18 17:00 10/11/18 16:59 09/11/18 21:19 Iopamidol (Isovue-300 100ml) 100 ml NOW PRN INJ Radiology Procedure 09/11/18 14:15 Lorazepam (Ativan 2mg/ml 1ml) 0.5 mg Q4H PRN IV For Anxiety 09/11/18 16:00 09/18/18 15:59 Morphine Sulfate (Morphine Sulfate) 1 mg Q4H PRN IVP PAIN 4-10 09/11/18 16:00 09/18/18 15:59 Ondansetron HCl (Zofran) 4 mg Q6H PRN IVP Nausea & Vomiting 09/11/18 16:00 10/11/18 15:59 Polyethylene Glycol (Miralax) 17 gm HSPRN PRN ORAL Constipation 09/11/18 21:00 10/11/18 20:59 Sertraline HCl (Zoloft) 50 mg DAILY ORAL 09/12/18 09:00 10/12/18 08:59 09/12/18 09:46 Zolpidem Tartrate (Ambien) 5 mg HSPRN PRN ORAL Insomnia 09/11/18 21:00 09/18/18 20:59 Assessment/Plan Problem List: (1) Diabetes mellitus ICD Codes: E11.9 - Type 2 diabetes mellitus without complications SNOMED: 17044330 (2) History of colon cancer ICD Codes: Z85.038 - Personal history of other malignant neoplasm of large intestine SNOMED: 248729392 (3) Colostomy care ICD Codes: Z43.3 - Encounter for attention to colostomy SNOMED: 384982788 (4) Incarcerated left inguinal hernia Assessment & Plan: hernia noted on exam but reducible patient states reduced once he was admitted tolerating diet ostomy functional exam benign labs okay okay to d/c home elective outpatient hernia repair. patient to follow up with pcp thank you ICD Codes: K40.30 - Unilateral inguinal hernia, with obstruction, without gangrene, not specified as recurrent SNOMED: 725539447 (5) Left inguinal hernia ICD Codes: K40.90 - Unilateral inguinal hernia, without obstruction or gangrene , not specified as recurrent SNOMED: 130940790 Felix Johnson Sep 12, 2018 14:18
--- NOTE | 2018-09-12 14:55 | NUR ---
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 IS:NS x1L IV MORPHINE 4mg IVP ADMITTED TO MED/SURG DCP: RETURN TO RECUPERATIVE CARE PER PT. REQUEST
--- NOTE | 2018-09-12 17:45 | History & Physical ---
History and Physical History & Physicial Tyrel Messer MD Sep 12, 2018 17:45
--- NOTE | 2018-09-12 18:07 | NUR ---
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 Patient will return [facility] [place] [id number] [facility] [place], [place] [id number] . HC spoke with Zita, Zita states it is okay for patient to return, please provide date and time of arrival. Patient will need a taxi voucher. Prior to admission patient has a scheduled PCP appointment October 15, 2018. Patient is aware of this appointment but can't recall the time of appt or address at this time. Patient states the information is at home. Patient continues to require medical intervention. Will continue to monitor and assist as needed.
--- NOTE | 2018-09-12 19:30 | History and Physical Report ---
DATE OF ADMISSION: 09/11/2018 CHIEF COMPLAINT: Abdominal pain. HISTORY OF PRESENT ILLNESS: This is a 63-year-old gentleman with past medical history significant for diabetes type 2, hypertension, colon cancer status post colectomy, and left inguinal hernia, who presented to emergency room complaining about the pain around the hernia area. The patient after initial evaluation in the emergency room, the patient was admitted to the hospital with abdominal pain, most likely secondary to possible incarcerated left inguinal hernia. PAST MEDICAL/SURGICAL HISTORY: As above, history of diabetes type 2, hypertension, colon cancer status post colectomy presently on colostomy bag, and left inguinal hernia. MEDICATIONS: Medications at home significant for amlodipine, aspirin, atorvastatin, gabapentin, lisinopril, metformin, and . ALLERGIES: No known drug allergies. SOCIAL HISTORY: Denies any smoking, alcohol, or drugs at this time. FAMILY HISTORY: Noncontributory. REVIEW OF SYSTEMS: Mostly as above. PHYSICAL EXAMINATION: VITAL SIGNS: On admission, temperature is 97.5, pulse 77, respirations 16, and blood pressure 132/87. GENERAL: The patient is awake, responsive, in no acute distress. HEAD AND NECK: Pupils are reactive to light. Extraocular movements intact. Neck was supple. No JVD. LUNGS: Good air entry. No wheeze or rales. HEART: S1, S2. Regular rhythm. No murmur or gallops. ABDOMEN: Soft, nondistended. Colostomy bag with fecal material midline to the left side was noted. Tenderness around the colostomy area and the left inguinal area. NEUROLOGIC: Cranial nerves II through XII are grossly intact. Motor is 5/5 in all extremities. Gait is intact. RECTAL/GENITOURINARY: Refused and deferred. PSYCHIATRIC: Mood and affect is intact. LABORATORY DATA: On admission from the ER, WBC of 7.9, hemoglobin 12, hematocrit 36, and platelets 286. Sodium 137, potassium 4.7, chloride 102, bicarbonate 23, BUN 31, and creatinine 1.1. GFR is greater than 60. Lactic acid is 1.70. Lipase is 304. PT , INR 0.9, and PTT 26. The patient had a CT of the abdomen and pelvis done, new large left inguinal hernia containing part of the sigmoid colon and small bowel, some inflammatory is present, incarceration is suspected. Partial bowel obstruction is not excluded. No changes in regard to the large right lower quadrant spigelian hernia. Left lower quadrant sigmoid colectomy, bilateral right renal cyst. ASSESSMENT: 1. Abdominal pain, most likely possible due to the left incarcerated inguinal hernia. 2. History of colon cancer, status post sigmoid colectomy. 3. Diabetes type 2. 4. Hypertension. 5. Dehydration. PLAN: Admit the patient to medical floor. We will start the patient on IV hydration. Follow up with the surgical consultation with Dr. Johnson as well as Pulmonary Critical Care, Dr. Bautista. Monitor laboratory closely. Advance diet as tolerated. DVT prophylaxis, heparin subcutaneous. Code status is Full Code. Tyrel Messer M.D. DR: ELLE JOB#: [id number] CC:
--- NOTE | 2018-09-12 19:41 | NUR ---
NURSE NOTES: Patient discharged to [facility] via taxi. Taxi voucher given to patient. Discharge packet given to patient. Belongings reviewed and accounted for. IV removed. Patient accompanied by RN to lobby. Patient stable upon discharge.
--- NOTE | 2018-09-13 21:56 | Discharge Summary ---
Discharge Summary Discharge Summary _ DATE OF ADMISSION: 09/11/2018 DATE OF DISCHARGE: 09/12/2018 DISCHARGED BY: Dr. Messer REASON FOR ADMISSION: 63 years old male with past medical history significant for diabetes mellitus type 2, hypertension, colon cancer, status post colectomy, left inguinal hernia , presented to emergency department, complaining of pain around his hernia area. After initial evaluation in emergency department patient was admitted to the hospital with abdominal pain, most likely secondary to incarcerated left inguinal hernia. Laboratory work-up revealed no leukocytosis, hemoglobin 12.9, hematocrit 36.8. Stable electrolytes. BUN 31, creatinine 1.1. Lipase 304. Stable LFT. CT of the abdomen pelvis demonstrated large left inguinal hernia, containing part of the sigmoid colon and small bowel. Some inflammation present. Incarceration was suspected. Partial bowel obstruction was not excluded. Left lower quadrant sigmoid colostomy. No change in regards to large right lower quadrant spigelian hernia. CONSULTANTS: pulmonology/critical care Dr. Bautista surgery Dr. Johnson [facility] COURSE: Patient admitted to medical surgical floor. Patient started on the IV hydration. Pain management was addressed. DVT prophylaxis provided. Surgeon seen and evaluated patient. Hernia was noted on exam, but was reducible. Patient reported, did it was reduced after he was admitted. Patient slowly started on diet and was advanced as tolerated. Patient was able to tolerate diet. Colostomy was functioning well. Exam was benign. Laboratory work-up was unremarkable. BUN down to 22 with IV hydration. Surgeon cleared patient for discharge home and follow-up with a primary care provider to schedule outpatient elective hernia repair. CEA was within normal limits. Blood pressure was managed with current medication regimen and remained stable. Blood sugar was managed with sliding scale of insulin and remained stable. Pain management was addressed as needed. Supportive care provided. Patient clinically stabilized and was ready for discharge home. Due to rapid and unexpected improvement in patient condition, patient was discharged in 1 day. FINAL DIAGNOSES: Abdominal pain most likely secondary to left incarcerated inguinal hernia Left incarcerated inguinal hernia History of colon cancer, status post sigmoid colectomy Diabetes mellitus type 2 Hypertension Dehydration Colostomy care DISCHARGE MEDICATIONS: See Medication Reconciliation list. DISCHARGE INSTRUCTIONS: Patient was discharged home. Follow up with primary care provider with referral to surgeon for elective outpatient hernia repair. I have been assigned to dictate discharge summary for this account. I was not involved in the patient's management. Lauren Melendez NP Sep 13, 2018 21:56
== END 2018-09-12 18:20 | disposition home or self-care (01) | DRG 254 ==
LOC: EDBD 13:53 → EMR 15:20 → 4E 15:25 → EDBEDREQ 15:40 → 4E 16:29
DX: K40.30 Unilateral inguinal hernia, with obstruction, without gangrene, not specified as recurrent (principal); Z43.3 Encounter for attention to colostomy; E11.9 Type 2 diabetes mellitus without complications; Z85.038 Personal history of other malignant neoplasm of large intestine; Z90.49 Acquired absence of other specified parts of digestive tract; I10 Essential (primary) hypertension; E86.0 Dehydration; Z59.0 Homelessness; Z79.84 Long term (current) use of oral hypoglycemic drugs; Z79.82 Long term (current) use of aspirin
CPT/HCPCS: 36415; 74177; 80053; 80061; 82378; 82962; 83605; 83690; 85025; 85610; 85730; 96361; 96374; 99285; J1815